=== PATIENT | male | born 1995 | race Caucasian/White ===

== ENCOUNTER 2023-08-26 04:07 | Emergency (ER) | payer MEDICAID ==
[~2023-08-26] VITALS: Ht 177.8 cm; Wt 87.0 kg
[2023-08-26 04:15] VITALS: BP 165/105; PULSE 113; RESP 18; TEMP 98.3; O2SAT 99
[2023-08-26 04:55] LABS: BASOPHILS % 0.5 % (0.0-2.0); HEMATOCRIT. 44.5 % (42.0-52.0); HEMOGLOBIN. 15.4 g/dL (14.0-18.0); LYMPHOCYTES % 21.7 % (20.0-50.0); MEAN CORPUSCULAR HEMOGLOBIN 30.7 pg (28.0-32.0); MEAN CORPUSCULAR HGB CONC 34.6 g/dL (31.0-37.0); MEAN CORPUSCULAR VOLUME 88.7 fL (80.0-94.0); MEAN PLATELET VOLUME 9.4 fl (7.4-10.4); MONOCYTES % 7.3 % (2.0-8.0); NEUTROPHILS % 68.5 % (40.0-76.0); PLATELET 253 x1000/uL (130-400); RED BLOOD CELL COUNT 5.02 mill/uL (4.7-6.1); RED CELL DISTRIBUTION WIDTH 13.2 % (11.6-14.6); WHITE BLOOD COUNT 11.6 x1000/uL (4.5-11.0)
[2023-08-26 05:01] LABS: CHLORIDE 103 mEq/L (98-107); POTASSIUM 3.6 mEq/L (3.5-5.1); SODIUM 137 mEq/L (136-145)
[2023-08-26 05:02] LABS: CARBON DIOXIDE 25 mEq/L (21-32)
[2023-08-26 05:03] LABS: CALCIUM 9.7 mg/dL (8.7-10.4)
[2023-08-26 05:07] LABS: CREATININE 0.9 mg/dL (0.6-1.3); GLUCOSE 173 mg/dL (70-105)
[2023-08-26 05:08] LABS: UREA NITROGEN BLOOD 5 mg/dL (9-23)
[2023-08-26 05:14] LABS: THYROID STIMULATING HORMONE 2.08 uIU/mL (0.55-4.78)
== END 2023-08-26 12:01 | disposition left against medical advice (07) ==
LOC: ER 04:07
DX: F41.9 Anxiety disorder, unspecified (principal)
CPT/HCPCS: 36415; 80048; 84443; 85025; 93005; 99284